=== PATIENT | male | born 1985 | race Caucasian/White ===

== ENCOUNTER 2016-03-11 15:38 | Emergency (ER) | payer SELFPAY ==
--- NOTE | 2016-03-11 16:17 | RAD ---
RIGHT LITTLE FINGER THREE VIEWS: 03/11/16 HISTORY: Right finger injury. FINDINGS: There is one quarter shaft width volar subluxation at the distal interphalangeal joint with a 0.3 cm triangular fragment displaced posteriorly from the distal base plate. No other acute fracture or di slocation are apparent. IMPRESSION: Extensor tendon ossific avulsion from the distal phalanx right middle finger. POS: [facility]
--- NOTE | 2016-03-11 16:25 | ERRECORD ---
[facility] EMERGENCY RECORD HPI HAND (16:05 ABUS) CHIEF COMPLAINT: Patient presents for evaluation of injury, to the right hand, Patient presents for evaluation of pain, to the right hand, Patient presents for evaluation of tenderness, to the right hand. HISTORIAN: History provided by patient, 30 yr old M with injury to the R 5th finger today (dropped a steel beam on it). Has normal sensation but cannot fully extend it. MECHANISM OF INJURY: Mechanism of injury: Blunt trauma, by direct blow. LOCATION: Symptoms are localized, most severe in the fifth finger. QUALITY: Pain is dull in nature, described as aching. SEVERITY: Currently symptoms are mild, Current severity of pain rated as 6/10. TIME COURSE: Sudden onset of symptoms, just prior to arrival, There has been no change in the patient's symptoms over time, are constant. ASSOCIATED WITH: No associated symptoms. EXACERBATED BY: Patient's condition exacerbated by nothing. RELIEVED BY: Patient's condition relieved by nothing. ROS (16:14 ABUS) CONSTITUTIONAL: Negative constitutional review of systems, Historian denies chills, denies fever. ENT: Negative ears, nose, throat review of systems, Historian denies rhinorrhea, denies sore throat. CARDIOVASCULAR: Negative cardiovascular review of systems, Historian denies chest pain, denies palpitations. RESPIRATORY: Negative respiratory review of systems, Historian denies cough, denies shortness of breath. GI: Negative gastrointestinal review of systems, Historian denies abdominal pain, denies constipation, denies diarrhea, denies nausea, denies vomiting. MUSCULOSKELETAL: Historian reports deformity, reports injury. SKIN: Negative skin review of systems, Historian denies rash, denies skin changes. NEUROLOGIC: Negative neurologic review of systems, Historian denies headache. PAST MEDICAL HISTORY (15:52 SFRE) MEDICAL HISTORY: No past medical history. MALE SURGICAL HISTORY: Patient has no surgical history. PSYCHIATRIC HISTORY: No previous psychiatric history, Notes: tokld mother she woould see him in a coffen, Psychiatric history includes history of suicidal ideations. SOCIAL HISTORY: Patient denies alcohol use, Patient denies drug use, Patient has no smoking history, Patient denies alcohol use, Patient currently uses drugs, abuses marijuana, Patient has no &a-1R&a+25V*p+0X*l0970B*c202B*c15G*c2P*p-0X&a-25V&a+1R Name: Oliver Ash : 1985 M30 MedRec: [id number] AcctNum: [id number] Prepared: MonMar 11, 2016 18:31 by Interface Page 1 of 3 pMD [facility] EMERGENCY RECORD smoking history. KNOWN ALLERGIES No Known Drug Allergies CURRENT MEDICATIONS (15:49 SFRE) None VITAL SIGNS (15:48 SFRE) VITAL SIGNS: BP: 126/70, Pulse: 88, Resp: 18, Temp: 97.7 (Tympanic), Pain: 6, O2 sat: 100 on Room Air, Time: 03/11/2016 15:48. PHYSICAL EXAM CONSTITUTIONAL: Vital signs reviewed, Patient afebrile, Pulse normal, Blood pressure normal, Respiratory rate normal, Patient appears non toxic, Patient appears pain free, Patient alert and oriented to person, place and time. (16:14 ABUS) NECK: Neck exam normal, Neck exam included findings of normal range of motion, Trachea midline, no meningeal signs, no cervical adenopathy, no tenderness. (16:14 ABUS) RESPIRATORY CHEST: Respiratory and chest exam normal, Respiratory exam included findings of no respiratory distress, Breath sounds clear. (16:14 ABUS) CARDIOVASCULAR: Cardiovascular assessment normal, Cardiovascular exam included findings of heart rate regular rate and rhythm, Heart sounds normal. (16:14 ABUS) ABDOMEN MALE: Abdominal exam included findings of abdomen nontender, Bowel sounds normal, no distension, no mass, no pulsatile masses, no peritoneal signs, no rigidity, no guarding, no rebound, Rovsing's sign absent. (16:14 ABUS) BACK: Back exam normal, Back exam included findings of normal inspection, range of motion normal, no tenderness. (16:14 ABUS) UPPER EXTREMITY: capillary refill less than 2 seconds, distal sensory intact, no cyanosis, no clubbing, no edema, R 5th finger cannot actively full extend. (16:15 ABUS) NEURO: Neuro exam normal, Neuro exam findings include patient oriented to person, place and time, Speech normal, Gait normal. (16:14 ABUS) SKIN: Skin exam normal, Skin exam included findings of skin warm, dry, and normal in color, no rash. (16:14 ABUS) RADIOLOGYINTERPRETATION (16:16 ABUS) UPPER EXTERMITIES: Radiological interpretation of, the right fingers shows, fracture noted, to distal phalanx, 5th finger. ICT BUSINESS ANALYST: Preliminary review of x-rays by, ED Physician, Radiologist. DOCTOR NOTES (16:15 ABUS) TEXT: 30 yr old M with injury to the R 5th finger today &a-1R&a+25V*p+0X*a4607P*c202B*c15G*c2P*p-0X&a-25V&a+1R Name: Oliver Ash : 1985 1 MedRec: [id number] AcctNum: [id number] Prepared: MonMar 11, 2016 18:31 by Interface Page 2 of 3 pMD [facility] EMERGENCY RECORD (dropped a steel beam on it). Has normal sensation but cannot fully extend it. Exam: norm cap refill, sensation and flexion but cannot fully extend R 5th finger. Dx: flexor avulsion fracture to the R 5th DIP Plan: nerve block performed using lidocaine 1% without epi (3 mL), reduced in ED the finger and placed in extension with ortho follow up. PROBLEM LIST No recorded problems DIAGNOSIS (16:19 ABUS) FINAL: PRIMARY: Finger fracture. PRESCRIPTION (16:19 ABUS) traMADol: TABLET : 50 mg : ORAL : Quantity: 1 Unit: tab(s) Route: ORAL Schedule: every 8 hours PRN Dispense: 6 Unit: tab(s) May substitute. Refills: No Refills . NOTES: No Refills. DISPOSITION PATIENT: Disposition Type: Discharge, Disposition: *Discharge Home, Condition: Good. (16:19 ABUS) Patient left the department. (18:26 SFRE) Trejo: ABUS=MD Kiera, Boom SFRE=DEDE Carreon, Jackie &a-1R&a+25V*p+0X*c2566K*c202B*c15G*c2P*p-0X&a-25V&a+1R Name: Oliver Ash : 1985 M30 MedRec: [id number] AcctNum: [id number] Prepared: MonMar 11, 2016 18:31 by Interface Page 3 of 3 pMD MTDD
--- NOTE | 2016-03-11 16:31 | PICIS ---
[facility] EMERGENCY RECORD TRIAGE (MonMar 11, 2016 15:49 SFRE) TRIAGE NOTES: PAIN TO RIGHT 5TH DIGIT. (MonMar 11, 2016 15:49 SFRE) PATIENT: NAME: Oliver Ash, AGE: 30, GENDER: male, : Sat 1985, TIME OF GREET: MonMar 11, 2016 15:39, PREFERRED LANGUAGE: Ukrainian, ETHNICITY: Not or , ECODE BILLING MAP: [facility], SSN: [id number], Zip Code: [address], KG WEIGHT: 77.11, PHONE: , , , PERSON ID: [id number], PCP: NO PCP. (MonMar 11, 2016 15:49 SFRE) COMPLAINT: POSSIBLE BROKEN FINGER ON RIGHT HAND. (MonMar 11, 2016 15:49 SFRE) ADMISSION: URGENCY: 4 Non Urgent, ADMISSION SOURCE: Home, TRANSPORT: Walk-in, BED: ED -04. (MonMar 11, 2016 15:49 SFRE) ASSESSMENT: Symptoms began 03/11/2016. (15:52 SFRE) PAIN: Patient complains of pain described as, throbbing, on a scale 0-10 patient rates pain as 6. (15:52 SFRE) IMMUNIZATIONS: Tetanus immunization up to date. (15:52 SFRE) SIRS SCORING: Heart Rate 55-109 (0), Temp range 96.8-101.1 (0), respiratory rate 12-24 (0), Mental Status altered: no (0). (15:52 SFRE) TRIAGE SCREENING: Patient denies suicidal ideation, Patient denies presence of domestic violence. (15:52 SFRE) PROVIDERS: TRIAGE NURSE: Jackie Carreon RN. (MonMar 11, 2016 15:49 SFRE) VITAL SIGNS: BP 126/70, Pulse 88, Resp 18, Temp 97.7, (Tympanic), Pain 6, O2 Sat 100, on Room Air, Time 03/11/2016 15:48. (15:48 SFRE) KNOWN ALLERGIES No Known Drug Allergies CURRENT MEDICATIONS (15:49 SFRE) None VITAL SIGNS (15:48 SFRE) VITAL SIGNS: BP: 126/70, Pulse: 88, Resp: 18, Temp: 97.7 (Tympanic), Pain: 6, O2 sat: 100 on Room Air, Time: 03/11/2016 15:48. NURSING PROCEDURE: SPLINTING (16:17 ABUS) PATIENT IDENTIFIER: Patient actively involved in identification process, Patient's identity verified by hospital ID bracelet. SPLINTING: Splinting indicated for fracture care, Splint applied to, the fifth finger, on the right hand, by Kiera. FOLLOW-UP: After procedure, capillary refill less than 2 seconds, After procedure, distal sensation intact, After procedure, distal pulses present. NOTES: Patient tolerated procedure well. ORDER DETAILS &a-1R&a+25V*p+0X*y8492Q*c202B*c15G*c2P*p-0X&a-25V&a+1R Name: Oliver Ash : 1985 M30 MedRec: [id number] AcctNum: [id number] Prepared: MonMar 11, 2016 18:31 by Interface Page [address] [facility] EMERGENCY RECORD Order Name: XR Finger(s) Rt Min 2 View, Status: Active, Time: 15:50 03/11/2016, User: [place], - Ordered for: MD Kiera, Boom, - Entered by: DEDE Carreon Stacey - MonMar 11, 2016 15:50, - Quantity: 1. HPI HAND (16:05 ABUS) CHIEF COMPLAINT: Patient presents for evaluation of injury, to the right hand, Patient presents for evaluation of pain, to the right hand, Patient presents for evaluation of tenderness, to the right hand. HISTORIAN: History provided by patient, 30 yr old M with injury to the R 5th finger today (dropped a steel beam on it). Has normal sensation but cannot fully extend it. MECHANISM OF INJURY: Mechanism of injury: Blunt trauma, by direct blow. LOCATION: Symptoms are localized, most severe in the fifth finger. QUALITY: Pain is dull in nature, described as aching. SEVERITY: Currently symptoms are mild, Current severity of pain rated as 6/10. TIME COURSE: Sudden onset of symptoms, just prior to arrival, There has been no change in the patient's symptoms over time, are constant. ASSOCIATED WITH: No associated symptoms. EXACERBATED BY: Patient's condition exacerbated by nothing. RELIEVED BY: Patient's condition relieved by nothing. ROS (16:14 ABUS) CONSTITUTIONAL: Negative constitutional review of systems, Historian denies chills, denies fever. ENT: Negative ears, nose, throat review of systems, Historian denies rhinorrhea, denies sore throat. CARDIOVASCULAR: Negative cardiovascular review of systems, Historian denies chest pain, denies palpitations. RESPIRATORY: Negative respiratory review of systems, Historian denies cough, denies shortness of breath. GI: Negative gastrointestinal review of systems, Historian denies abdominal pain, denies constipation, denies diarrhea, denies nausea, denies vomiting. MUSCULOSKELETAL: Historian reports deformity, reports injury. SKIN: Negative skin review of systems, Historian denies rash, denies skin changes. NEUROLOGIC: Negative neurologic review of systems, Historian denies headache. PAST MEDICAL HISTORY (15:52 SFRE) MEDICAL HISTORY: No past medical history. MALE SURGICAL HISTORY: Patient has no surgical &a-1R&a+25V*p+0X*u8598N*c202B*c15G*c2P*p-0X&a-25V&a+1R Name: Oliver Ash : 1985 M30 MedRec: [id number] AcctNum: [id number] Prepared: MonMar 11, 2016 18:31 by Interface Page [address] [facility] EMERGENCY RECORD history. PSYCHIATRIC HISTORY: No previous psychiatric history, Notes: tokld mother she woould see him in a coffen, Psychiatric history includes history of suicidal ideations. SOCIAL HISTORY: Patient denies alcohol use, Patient denies drug use, Patient has no smoking history, Patient denies alcohol use, Patient currently uses drugs, abuses marijuana, Patient has no smoking history. PHYSICAL EXAM CONSTITUTIONAL: Vital signs reviewed, Patient afebrile, Pulse normal, Blood pressure normal, Respiratory rate normal, Patient appears non toxic, Patient appears pain free, Patient alert and oriented to person, place and time. (16:14 ABUS) NECK: Neck exam normal, Neck exam included findings of normal range of motion, Trachea midline, no meningeal signs, no cervical adenopathy, no tenderness. (16:14 ABUS) RESPIRATORY CHEST: Respiratory and chest exam normal, Respiratory exam included findings of no respiratory distress, Breath sounds clear. (16:14 ABUS) CARDIOVASCULAR: Cardiovascular assessment normal, Cardiovascular exam included findings of heart rate regular rate and rhythm, Heart sounds normal. (16:14 ABUS) ABDOMEN MALE: Abdominal exam included findings of abdomen nontender, Bowel sounds normal, no distension, no mass, no pulsatile masses, no peritoneal signs, no rigidity, no guarding, no rebound, Rovsing's sign absent. (16:14 ABUS) BACK: Back exam normal, Back exam included findings of normal inspection, range of motion normal, no tenderness. (16:14 ABUS) UPPER EXTREMITY: capillary refill less than 2 seconds, distal sensory intact, no cyanosis, no clubbing, no edema, R 5th finger cannot actively full extend. (16:15 ABUS) NEURO: Neuro exam normal, Neuro exam findings include patient oriented to person, place and time, Speech normal, Gait normal. (16:14 ABUS) SKIN: Skin exam normal, Skin exam included findings of skin warm, dry, and normal in color, no rash. (16:14 ABUS) EVENTS TRANSFER: Triage to Emergency Main ED -04. (15:49 SFRE) Removed from Emergency Main ED -04. (18:26 SFRE) RADIOLOGYINTERPRETATION (16:16 ABUS) UPPER EXTERMITIES: Radiological interpretation of, the right fingers shows, fracture noted, to distal phalanx, 5th finger. UNDERCOLLAR BASTER: Preliminary review of x-rays by, ED Physician, Radiologist. DOCTOR NOTES (16:15 ABUS) &a-1R&a+25V*p+0X*w0629C*c202B*c15G*c2P*p-0X&a-25V&a+1R Name: Oliver Ash : 1985 M30 MedRec: [id number] AcctNum: [id number] Prepared: MonMar 11, 2016 18:31 by Interface Page [address] [facility] EMERGENCY RECORD TEXT: 30 yr old M with injury to the R 5th finger today (dropped a steel beam on it). Has normal sensation but cannot fully extend it. Exam: norm cap refill, sensation and flexion but cannot fully extend R 5th finger. Dx: flexor avulsion fracture to the R 5th DIP Plan: nerve block performed using lidocaine 1% without epi (3 mL), reduced in ED the finger and placed in extension with ortho follow up. PROBLEM LIST No recorded problems DIAGNOSIS (16:19 ABUS) FINAL: PRIMARY: Finger fracture. DISPOSITION PATIENT: Disposition Type: Discharge, Disposition: *Discharge Home, Condition: Good. (16:19 ABUS) Patient left the department. (18:26 SFRE) INSTRUCTION (16:20 ABUS) DISCHARGE: FINGER FRACTURE CLOSED. FOLLOWUP: [facility], /[facility], [address], [facility] [address], , [facility], [facility], [address], [address], [facility] [address], , Follow up with Primary Care Physician in 2-3 days. SPECIAL: As discussed in the ER before you left, please follow up with your primary care doctor or call the referral made for you here in the ED today to establish outpatient follow up for your medical care. Please come back sooner if you start to develop fever, worsening pain, swelling, or symptoms that are new or symptoms the concern you. PRESCRIPTION (16:19 ABUS) traMADol: TABLET : 50 mg : ORAL : Quantity: 1 Unit: tab(s) Route: ORAL Schedule: every 8 hours PRN Dispense: 6 Unit: tab(s) May substitute. Refills: No Refills . NOTES: No Refills. IMAGING *DISCHARGE INSTRUCTIONS RECEIPT: Image captured from scanner. (18:05 AWAT) Page 2 added. Image captured from scanner. (18:05 AWAT) *SUPPLY CHARGE SHEET: Image captured from scanner. (18:13 AWAT) ADMIN (16:20 ABUS) DIGITAL SIGNATURE: MD Kiera, Boom. &a-1R&a+25V*p+0X*i6725W*c202B*c15G*c2P*p-0X&a-25V&a+1R Name: Oliver Ash : 1985 M30 MedRec: [id number] AcctNum: [id number] Prepared: MonMar 11, 2016 18:31 by Interface Page [address] [facility] EMERGENCY RECORD Trejo: ABUS=MD Kiera, Boom SALAS=DEDE Godoy, Juan A CALLAHAN=DEDE Carreon, Jackie &a-1R&a+25V*p+0X*y1359M*c202B*c15G*c2P*p-0X&a-25V&a+1R Name: Oliver Ash : 1985 M30 MedRec: [id number] AcctNum: [id number] Prepared: MonMar 11, 2016 18:31 by Interface Page 5 of 5 pMD MTDD
== END 2016-03-11 18:05 | disposition home or self-care (01) ==
LOC: MADERS 15:38
DX: S62.636A Displaced fracture of distal phalanx of right little finger, initial encounter for closed fracture (principal); X58.XXXA Exposure to other specified factors, initial encounter
CPT/HCPCS: 64450

== ENCOUNTER 2016-07-18 10:26 | Emergency (ER) | payer SELFPAY ==
[~2016-07-18 10:26] MED LIST: Sodium Chloride 0.9% 1,000 ML BAG ONE
[2016-07-18 11:36] LABS: ALT (SGPT) 20 U/L (8-55); AST (SGOT) 25 U/L (5-34); Albumin 3.9 g/dL (3.5-5.0); Alkaline Phosphatase 75 U/L (40-150); Anion Gap 11 mmol/L (10-20); BUN (Urea Nitrogen) 4 mg/dL (8.9-20.6); Bilirubin, Total 0.8 mg/dL (0.2-1.2); Calc. Creatinine Clearance 0 mL/min (70-130); Calcium 9.3 mg/dL (7.8-10.44); Carbon Dioxide 26 mmol/L (22-29); Chloride 102 mmol/L (98-107); Estimated GFR-MDRD Greater than 90; Globulin 3.4 g/dL (2.4-3.5); Glucose 94 mg/dL (70-105); Potassium 3.8 mmol/L (3.5-5.1); Protein, Total 7.3 g/dL (6.0-8.3); Sodium 135 mmol/L (136-145)
[2016-07-18 11:42] LABS: Band 4 % (5-11); Eosinophils 1 % (0-10); Hemoglobin 13.9 g/dL (14.0-18.0); Lymphocytes 17 % (21-51); MDiff Complete? YES; Mean Corpuscular HGB CONC 34.4 g/dL (32.0-36.0); Mean Corpuscular Hemoglobin 30.3 pg (27.0-31.0); Mean Platelet Volume 8.1 fL (7.4-10.4); Monocytes 5 % (0-10); Neutrophil 73 % (42-75); PLT Morphology Comment Appears Adequate; Platelet Count 161 thou/uL (130-400); RBC Distribution Width 11.6 % (11.5-14.5); Red Blood Cell (RBC) Count 4.59 mill/uL (4.70-6.10); White Blood Cell (WBC) Count 16.6 thou/uL (4.8-10.8)
[2016-07-18] MEDS ORDERED: Ketorolac Tromethamine 30 MG/ML VIAL ONE (11:46)
[2016-07-18] MEDS ORDERED: Adacel (T-DAP) 0.5 ML VIAL ONE (11:46)
[2016-07-18] MEDS ORDERED: Acetaminophen 500 MG TAB ONE (11:48)
--- NOTE | 2016-07-18 11:49 | RAD ---
FRONTAL AND LATERAL IMAGING OF THE LEFT TIBIA AND FIBULA: DATE: 07/18/16. COMPARISON: None. HISTORY: Pain, wound, drainage. FINDINGS: Diffuse edematous changes are seen within the subcutaneous fat, especially in the mid-distal calf la terally. There is an area of skin irregularity within the distal lateral soft tissues, suggesting t he possibility of ulceration. Edema extends into the soft tissues of the dorsal foot as well. No r adiopaque foreign body. No fracture or dislocation. No subcutaneous gas. IMPRESSION: Soft tissue abnormality as described above. This could signify diffuse cellulitis. No subcutaneous gas. POS: [facility]
== END 2016-07-18 13:18 | disposition short-term general hospital (02) ==
LOC: MADERS 10:26
DX: L02.416 Cutaneous abscess of left lower limb (principal); L03.116 Cellulitis of left lower limb
CPT/HCPCS: 80053; 83605; 85025; 87040; 87070; 87077; 87186; 87205; 90471; 90715; 96365; 96375; J1885; J3370; J7050

== ENCOUNTER 2016-07-25 10:27 | Emergency (ER) | payer OTHER, SELFPAY ==
[2016-07-25] MEDS ORDERED: Doxycycline 100 MG CAP ONE (11:35)
[2016-07-25] MEDS ORDERED: D5 1/2 NS w/20 mEq KCL 1,000 ML ONE (11:35)
[2016-07-25] MEDS ORDERED: HYDROcodone/Acetaminophen 10/325 mg Tablet ONE (11:35)
== END 2016-07-25 11:45 | disposition home or self-care (01) ==
LOC: MADERS 10:27
DX: L03.116 Cellulitis of left lower limb (principal)
CPT/HCPCS: 99283